=== PATIENT | female | born 1965 | race African-American/Black ===

== ENCOUNTER → 2017-05-19 | Outpatient (CLI) | payer OTHER ==
--- NOTE | 2017-05-19 16:53 | WOMENS IMAGING REPORT ---
EXAM DESCRIPTION: BILAT SCREENING MAMMO W/CAD COMPLETED DATE/TIME: 05/19/2017 8:12 am REASON FOR STUDY: ROUTINE SCREENING; Z12.31 Z12.31 ENCNTR SCREEN MAMMOGRAM FOR MALIGNANT NEOPLASM O F GABRIELA COMPARISON: Multiple since 2010 TECHNIQUE: Standard craniocaudal and mediolateral oblique views of each breast recorded using Rupturea l acquisition. LIMITATIONS: None. FINDINGS: Findings present which are benign by mammographic criteria. No suspicious masses, calcifi cations or architectural distortion. Pertinent benign findings: Scattered benign punctate skin and breast parenchymal calcifications bilat erally Read with the assistance of CAD. .[facility] - R2 Cenova Version 1.3 .[facility] - R2 Cenova Version 1.3 .[facility] - R2 Cenova Version 2.4 .[facility] - R2 Cenova Version 2.4 .[facility] - R2 Pyridine Operator Version 9.2 Benign mammographic findings may include one or more of the following: Smooth masses, popcorn/rim/co arse calcifications, asymmetries, post-procedure changes, and lesions with long-standing stability. IMPRESSION: BENIGN MAMMOGRAPHIC FINDINGS. BIRADS 2 BREAST DENSITY: c. The breasts are heterogeneously dense, which may obscure small masses. BIRAD: 2 BENIGN FINDING(S) RECOMMENDATION: ROUTINE SCREENING Please consider bilateral screening tomosynthesis in April 2018 COMMENT: The patient has been notified of the results by letter per [place] requirements. Additional no tification policies are in place for contacting patient with suspicious or incomplete findings. Quality ID #[id number]: The [employer] recommends an annual screening mammogram for women aged 40 years or over. This facility utilizes a reminder system to ensure that all patients receive reminder letters, and/or direct phone calls for appointments. This includes reminders for routine scr eening mammograms, diagnostic mammograms, or other Breast Imaging Interventions when appropriate. Th is patient will be placed in the appropriate reminder system. The [employer] ([employer]) has developed recommendations for screening MRI of the breast s in certain patient populations, to be used in conjunction with mammography. Breast MRI surveillanc e may be appropriate for women with more than 20% lifetime risk of developing breast cancer as deter mined by genetic testing, significant family history of the disease, or history of mantle radiation f or Hodgkins Disease. ACR Practice Guidelines 2008. TECHNICAL DOCUMENTATION: FINDING NUMBER: (1) ASSESSMENT: (1) JOB ID: [id number] [facility], [place] [employer]- All Rights Reserved
== END ==
LOC: WI 07:25
PROVIDERS: ATTEND Midwife
DX: Z12.31 Encounter for screening mammogram for malignant neoplasm of breast (principal)
CPT/HCPCS: 77067; G0202

== ENCOUNTER 2018-01-10 13:23 | Emergency (ER) | payer OTHER ==
[2018-01-10 13:38] VITALS: BP 131/63
--- NOTE | 2018-01-10 14:03 | ER Document Report ---
ED General - General Chief Complaint: Chest Pain Stated Complaint: CHEST PAIN Time Seen by Provider: 01/10/18 13:54 Notes: 52-year-old female presents to the ER via EMS for epigastric pain that radiated up into her chest. The patient stated she had a breakfast at work this morning. And it felt as if she got some bad food. A coworker is also sick. The patient complains of some epigastric discomfort and pressure that radiated up into her chest nausea. She states she broke out into a sweat and was diaphoretic. The patient was brought here via EMS. When she came in here she was taken to triage the patient walked to the bathroom and then vomited in the bathroom and stated she felt tremendously better after having emesis. She stated that it must of been the food she ate that caused this. She states she has never had heart problems before. TRAVEL OUTSIDE OF THE [place] IN LAST 30 DAYS: No - Related Data Allergies/Adverse Reactions: No Known Allergies Allergy (Unverified 01/10/18 13:53) Past Medical History - Social History Smoking Status: Unknown if Ever Smoked Family History: None Review of Systems - Review of Systems Cardiovascular: Chest pain. denies: Dyspnea Respiratory: denies: Hemoptysis Gastrointestinal: Nausea, Vomiting. denies: Diarrhea, Constipation Genitourinary: denies: Dysuria Musculoskeletal: denies: Back pain Skin: Other - Diaphoresis -: Yes All other systems reviewed and negative Physical Exam - Vital signs Vitals: Temp Pulse Resp BP Pulse Ox 98.1 F 70 16 131/63 H 100 01/10/18 13:37 01/10/18 13:37 01/10/18 13:37 01/10/18 13:37 01/10/18 13:37 - Notes Notes: GENERAL_APPEARANCE: well_nourished, alert, cooperative, appears uncomfortable VITALS: reviewed, see vital signs table. HEAD: no_swelling\tenderness on the head. EYES: conjunctiva_clear. NOSE: no_nasal_discharge. MOUTH: (-)decreased moisture. THROAT: no_throat_inflammation, no_airway_obstruction. no_lymphadenopathy NECK: supple, no_neck_tenderness, (-)thyromegaly. BACK: no_back_tenderness. CHEST_WALL: no_chest_tenderness. LUNGS: no_wheezing, no_rales, no_rhonchi, (-)accessory muscle use, good air exchange bilateral. HEART: normal_rate, normal_rhythm, normal_S1, normal_S2, (-)S3, (-)S4, no_ murmur, no_rub. ABDOMEN: normal_BS, soft, no_abd_tenderness, (-)guarding, (-)rebound, no_ organomegaly, no_abd_masses. EXTREMITIES: no_swelling\tenderness in the extremities, no_edema. SKIN: warm, dry, good_color, no_rash. MENTAL_STATUS: speech_clear, oriented_X_3, normal_affect, responds_ appropriately to questions. Course - Re-evaluation Re-evalutation: 01/10/18 14:00 Patient arrives via EMS for epigastric pain rating up into her chest. Patient goes into the bathroom here in the ER waiting room and vomits and feels much better. She comes in to triage stating that she just wants to go home now. I looked at her EKG and spoke with her. Because have her age and the diaphoresis and just the overall concerning symptoms my recommendation is to stay here in the ER and have the complete cardiac workup done. Certainly food poisoning could explain some of this however the symptoms share a lot of similarities to acute coronary syndrome. Especially in women who present atypically. I spoke with the patient and spoke with her about the serious morbidity mortality associated with myocardial infarction. She verbalized understanding and assured me it was just the food. I welcomed her to come back to the ER and continue living if she changes her mind is in 30 seconds. Patient signed an AMA form. Again I allowed her time to ask questions and spoke with her and informed her of the serious risks and dangers associated with myocardial infarction. - Vital Signs Vital signs: Temp Pulse Resp BP Pulse Ox 98.1 F 70 16 131/63 H 100 01/10/18 13:37 01/10/18 13:37 01/10/18 13:37 01/10/18 13:37 01/10/18 13:37 - EKG Interpretation by Me EKG shows normal: Sinus rhythm Rate: Normal - 72 Rhythm: NSR When compared to previous EKG there are: Previous EKG unavailable Discharge - Discharge Clinical Impression: Chest pain Qualifiers: Chest pain type: unspecified Qualified Code(s): R07.9 - Chest pain, unspecified Condition: Good Disposition: AGAINST MEDICAL ADVICE Instructions: Chest Pain of Unclear Cause ([facility]) Additional Instructions: Please of we have discussed if you change your mind return to the ER immediately. You may believe that your symptoms are due to food however we cannot completely rule out heart disease without testing. There is always a possibility he may be having a myocardial infarction that is presenting atypically. Again I urged you to return if you change your mind. Referrals: NANCY ORTIZ MD [Primary Care Provider] - Follow up as needed
--- NOTE | 2018-01-10 20:42 | EKG REPORT ---
SEVERITY:- NORMAL ECG - SINUS RHYTHM : Confirmed by: Choco Hurst MD 10-Jan-2018 20:41:14
== END 2018-01-10 14:07 | disposition left against medical advice (07) ==
LOC: ER 13:23
DX: R07.89 Other chest pain (principal); R10.13 Epigastric pain; R61 Generalized hyperhidrosis; R11.2 Nausea with vomiting, unspecified; Z53.29 Procedure and treatment not carried out because of patient's decision for other reasons
CPT/HCPCS: 93005; 93010; 99285